=== PATIENT | male | born 1990 | race Caucasian/White ===

== ENCOUNTER 2018-01-29 16:39 | Emergency (ER) | payer SELFPAY ==
[~2018-01-29] VITALS: Ht 182.9 cm; Wt 72.6 kg
[~2018-01-29 16:39] MED LIST: AMOX1TAB58 PO; BENZ-8 PO; CEPH500C PO; CLON0.5T11 PO; HYDR-971 PO; LEVO500T59 PO; Nicotine TD; SILV20CR14 TP
[2018-01-29 16:40] VITALS: BP 143/88
--- NOTE | 2018-01-29 16:56 | PHYS DOC ---
Past History Past Medical History: No Pertinent History Past Surgical History: Other Alcohol Use: Occasionally Drug Use: None Adult General Chief Complaint Chief Complaint: ANKLE PROBLEM HPI HPI Patient presents to the emergency department for evaluation of a right lower leg injury. He states about 30 minutes prior to arrival, he was at work, and tried to jump up onto a tailgate of a truck, but did not quite jump high enough , and struck the anterior aspect of his right leg, just distal to the ankle, on the ledge of the tailgate. He is complaining of pain on the anterior aspect of his mcdaniel, just proximal to his ankle. He states he is able to walk but it is painful to do so. He denies any numbness or weakness or any other injuries. Palpation of the affected area as well as ambulation worsen his pain. He does not have any other complaints at this time. Review of Systems Review of Systems Musculoskeletal: Denies back pain or joint pain except as noted in the history of present illness. [] Integument: Denies rash or skin lesions [] Neurologic: Denies focal weakness or sensory changes [] Allergies Allergies Allergies Coded Allergies Type Severity Reaction Last Updated Verified No Known Drug Allergies 08/26/14 No Physical Exam Physical Exam PHYSICAL EXAM: HEENT: Atruamatic NECK: Supple, normal ROM, non-tender. CARDIAC: Regular Rate and Rhythm LUNGS: Clear Bilaterally EXTREMITIES: There is focal tenderness to palpation of the anterior tibia, approximately 1 inch superior to the ankle joint. There is small bruising this area with minimal soft tissue swelling. There is no tenderness to palpation to the medial or lateral eyelids and there is no ligamentous laxity of the ankle joint. The foot itself is nontender, and the knee and the fibular head are nontender. The foot exhibits normal pulses with normal sensation and motor function. The remainder of the extremities are atraumatic. EKG EKG [] Radiology/Procedures Radiology/Procedures []ER physician preliminary ankle x-ray interpretation: No acute bony abnormality. No fracture. Course & Med Decision Making Course & Med Decision Making Pertinent Imaging studies reviewed. (See chart for details) [5:20 PM: The patient's condition remains a stable. I discussed the test results with the patient, the need for close follow-up, and return precautions. ] An Nathanael wrap will be placed. I discussed RICE with the patient., and the use of [id number] analgesics Dragon Disclaimer Dragon Disclaimer This electronic medical record was generated, in whole or in part, using a voice recognition dictation system. Departure Departure: Impression: Primary Impression: Contusion of leg, right Disposition: 01 HOME, SELF-CARE Condition: STABLE Referrals: [facility] (PCP) Patient Instructions: Contusion, Elastic Bandage and RICE, RICE - Routine Care for Injuries WEI MORRISON MD Jan 29, 2018 16:56
[2018-01-29] MEDS ORDERED: ACETAMINOPHEN 325 MG TABLET PO ONE (17:15)
--- NOTE | 2018-01-29 19:52 | RAD ---
Three-view right ankle radiographs 01/29/2018 CLINICAL HISTORY: Injury to the right ankle with swelling. AP, lateral and oblique digital radiographs of the right ankle were obtained. The right ankle mortise is intact. No fracture or dislocation of the right ankle is seen. IMPRESSION: No fracture or dislocation of the right ankle is seen. Electronically signed by: Gee Ibanez MD (01/29/2018 7:49 PM) [facility]
== END 2018-01-29 17:30 | disposition home or self-care (01) ==
LOC: ER 16:39
DX: S05.11XA Contusion of eyeball and orbital tissues, right eye, initial encounter (principal); V09.9XXA Pedestrian injured in unspecified transport accident, initial encounter; Y93.39 Activity, other involving climbing, rappelling and jumping off; Y92.89 Other specified places as the place of occurrence of the external cause; Y99.8 Other external cause status
CPT/HCPCS: 73610; 99284